=== PATIENT | female | born 1990 | race Two or more races ===

== ENCOUNTER 2019-01-18 19:31 | Emergency (ER) | payer SELFPAY ==
[~2019-01-18] VITALS: Ht 160 cm; Wt 76.2 kg
[2019-01-18 20:07] LABS: Urine Bacteria NONE SEEN /hpf (None Seen); Urine Blood 2+ /uL (Negative); Urine Mucus FEW (None Seen); Urine Specific Gravity 1.025 (1.001-1.035); Urine WBC 388 /hpf (0 - 5)
[2019-01-18 21:21] VITALS: BP 140/88
[2019-01-18] MEDS ORDERED: LIDOCAINE 1% HCL (LOCAL ANESTH.) INJ 20ML MDV ONE (21:30)
[2019-01-18] MEDS ORDERED: PHENAZOPYRIDINE HCL 100 MG TAB PO ONE (21:30)
[2019-01-18] MEDS ORDERED: cefTRIAXone SOD 1,000 MG VL IM ONE (21:30)
== END 2019-01-18 21:44 | disposition home or self-care (01) ==
LOC: ER 19:37
DX: N39.0 Urinary tract infection, site not specified (principal)
CPT/HCPCS: 81001; 81025; 96372; 99283; J0696; J2001